=== PATIENT | male | born 1965 | race Caucasian/White ===

== ENCOUNTER 2017-03-11 09:19 | Emergency (ER) | payer MEDICAID ==
[~2017-03-11] VITALS: Ht 170.2 cm; Wt 76.3 kg
[~2017-03-11 09:19] MED LIST: DOXE25CA3 PO; PARO20TA24 PO
[2017-03-11 09:32] VITALS: BP 135/82
[2017-03-11] MEDS ORDERED: KETOROLAC TROMETHAMINE 60 MG/2 ML VIAL IM ONE (11:30)
== END 2017-03-11 12:18 | disposition home or self-care (01) ==
LOC: EMS 09:23
DX: S82.51XA Displaced fracture of medial malleolus of right tibia, initial encounter for closed fracture (principal); V19.9XXA Pedal cyclist (driver) (passenger) injured in unspecified traffic accident, initial encounter; Y93.55 Activity, bike riding; Y92.89 Other specified places as the place of occurrence of the external cause; Y99.8 Other external cause status
CPT/HCPCS: 29515; 73610; 96372; 99284; J1885

== ENCOUNTER 2018-09-02 10:52 | Emergency (ER) | payer MEDICAID ==
[~2018-09-02] VITALS: Ht 167.6 cm; Wt 68.2 kg
[2018-09-02 12:01] LABS: APPEARANCE,URINE CLOUDY (CLEAR); BILIRUBIN,URINE NEGATIVE (NEGATIVE); GLUCOSE, URINE (UA) NEGATIVE (NEGATIVE); KETONES,URINE NEGATIVE (NEGATIVE); LEUKOCYTE ESTERASE ,URINE LARGE (NEGATIVE); NITRATE,URINE POSITIVE (NEGATIVE); OCCULT BLOOD,URINE LARGE (NEGATIVE); PROTEIN,URINE SEE CONFIRM (NEGATIVE)
[2018-09-02 12:16] LABS: BACTERIA,URINE Many /HPF (None Seen); SULFOSALICYLIC ACID,URINE 3+ (Negative); WBC,URINE 51-100 /HPF (0-5)
[2018-09-02] MEDS ORDERED: CEPHALEXIN MONOHYDRATE 500 MG CAPSULE PO ONE (14:30)
[2018-09-02 15:00] VITALS: BP 118/72
== END 2018-09-02 15:10 | disposition home or self-care (01) ==
LOC: EMS 10:52
DX: N39.0 Urinary tract infection, site not specified (principal)
CPT/HCPCS: 87086

== ENCOUNTER 2020-01-13 21:49 | Emergency (ER) | payer MEDICAID ==
[~2020-01-13] VITALS: Ht 167.6 cm; Wt 68.2 kg
[2020-01-13 22:48] LABS: BASOPHILS % (AUTO) 0.9 % (0.0-2.0); EOSINOPHILS % (AUTO) 10.5 % (1.0-6.0); HEMOGLOBIN 13.8 g/dL (13.5-17.5); LYMPHOCYTES # (AUTO) 1.9 K/uL (1.0-4.8); LYMPHOCYTES % (AUTO) 29.4 % (22.0-44.0); MEAN CORPUSCULAR HEMOGLOBIN 29.8 pg (26.0-34.0); MEAN CORPUSCULAR VOLUME 90 fL (80-100); MONOCYTES # (AUTO) 0.5 K/uL (0.1-1.0); MONOCYTES % (AUTO) 7.4 % (2.0-9.0); NEUTROPHILS # (AUTO) 3.3 K/uL (1.8-7.7); NEUTROPHILS % (AUTO) 51.8 % (40.0-70.0); PLATELET COUNT (AUTO) 287 K/uL (150-450); RED BLOOD CELL COUNT(AUTO) 4.65 MIL/uL (4.50-5.90); RED CELL DISTRIBUTION WIDTH 13.6 % (11.5-14.5)
[2020-01-13 23:00] LABS: CALCIUM, TOTAL 9.3 mg/dL (8.8-10.5); CREATININE 1.26 mg/dL (0.60-1.30); POTASSIUM 3.3 mmol/L (3.5-5.1)
[2020-01-13 23:06] LABS: ALBUMIN 3.7 g/dL (3.4-5.0); BILIRUBIN,TOTAL 0.2 mg/dL (0.1-1.0); TOTAL PROTEIN, SERUM 6.9 g/dL (6.4-8.2)
[2020-01-14 00:10] VITALS: BP 139/82
== END 2020-01-14 01:49 | disposition home or self-care (01) ==
LOC: EMS 21:49
DX: R20.0 Anesthesia of skin (principal)
CPT/HCPCS: 36415; 80053; 84484; 85025; 93005; 99284; G0480

== ENCOUNTER 2020-06-22 09:11 | Emergency (ER) | payer MEDICAID ==
[~2020-06-22] VITALS: Ht 157.5 cm; Wt 68.2 kg
[2020-06-22] MEDS ORDERED: PERTUSS(ACELL),DIPH,TET VAC/PF 0.5 ML VIAL IM ONE (10:45)
[2020-06-22] MEDS ORDERED: DOXYCYCLINE HYCLATE 100 MG TABLET PO ONE (10:45)
[2020-06-22 12:00] VITALS: BP 124/74
== END 2020-06-22 12:32 | disposition home or self-care (01) ==
LOC: EMS 09:15
DX: M79.645 Pain in left finger(s) (principal); W57.XXXA Bitten or stung by nonvenomous insect and other nonvenomous arthropods, initial encounter; Y93.89 Activity, other specified; Y92.89 Other specified places as the place of occurrence of the external cause; Y99.8 Other external cause status
CPT/HCPCS: 90471; 90715; 99283

== ENCOUNTER 2021-07-13 16:28 | Emergency (ER) | payer MEDICAID ==
[~2021-07-13] VITALS: Ht 167.6 cm; Wt 65.9 kg
[2021-07-13] MEDS ORDERED: IBUPROFEN 800 MG TABLET PO ONE (17:00)
[2021-07-13] MEDS ORDERED: CEPHALEXIN MONOHYDRATE 500 MG CAPSULE PO ONE (17:00)
[2021-07-13 19:00] VITALS: BP 154/85
[2021-07-13] MEDS ORDERED: MUPI15CR12 TP (20:39)
[2021-07-13] MEDS ORDERED: DOXY-354 PO (20:39)
== END 2021-07-13 20:30 | disposition home or self-care (01) ==
LOC: EMS 16:34
DX: L03.031 Cellulitis of right toe (principal); F32.9 Major depressive disorder, single episode, unspecified; F41.9 Anxiety disorder, unspecified
CPT/HCPCS: 99283

== ENCOUNTER 2022-08-06 10:41 | Emergency (ER) | payer MEDICAID ==
[~2022-08-06] VITALS: Ht 165.1 cm; Wt 70.5 kg
[~2022-08-06 10:41] MED LIST changes: -DOXE25CA3 PO; +DOXY-354 PO; +MUPI15CR12 TP; -PARO20TA24 PO
[2022-08-06 12:14] LABS: BASOPHILS % (AUTO) 0.3 % (0.0-2.0); EOSINOPHILS % (AUTO) 1.6 % (1.0-6.0); HEMATOCRIT 44.2 % (41-53); HEMOGLOBIN 14.6 g/dL (13.5-17.5); LYMPHOCYTES # (AUTO) 1.1 K/uL (1.0-4.8); LYMPHOCYTES % (AUTO) 13.8 % (22.0-44.0); MEAN CORPUSCULAR HEMOGLOBIN 29.3 pg (26.0-34.0); MEAN CORPUSCULAR VOLUME 89 fL (80-100); MONOCYTES # (AUTO) 0.8 K/uL (0.1-1.0); MONOCYTES % (AUTO) 10.2 % (2.0-9.0); NEUTROPHILS % (AUTO) 74.1 % (40.0-70.0); PLATELET COUNT (AUTO) 296 K/uL (150-450); RED BLOOD CELL COUNT(AUTO) 4.97 MIL/uL (4.50-5.90); RED CELL DISTRIBUTION WIDTH 14.4 % (11.5-14.5)
[2022-08-06 12:16] LABS: ANION GAP 6 mmol/L (8-16); CALCIUM, TOTAL 9.2 mg/dL (8.8-10.5); CARBON DIOXIDE 29 mmol/L (22-29); CHLORIDE 103 mmol/L (98-107); CREATININE 0.91 mg/dL (0.60-1.30); GLOMERULAR FILTR. RATE CALC > 60 mL/min (>60); GLUCOSE,RANDOM 79 mg/dL (70-110); POTASSIUM 3.9 mmol/L (3.5-5.1); SODIUM SERUM 138 mmol/L (136-145); UREA NITROGEN, BLOOD 13 mg/dL (7-18)
[2022-08-06 12:32] VITALS: BP 131/78
[2022-08-06] MEDS ORDERED: CEPH-558 PO (12:52)
[2022-08-06] MEDS ORDERED: IBUP-1492 PO (12:52)
[2022-08-06] MEDS ORDERED: SULF-261 PO (12:54)
[2022-08-06] MEDS ORDERED: CEPHALEXIN MONOHYDRATE 500 MG CAPSULE PO ONE (13:00)
[2022-08-06] MEDS ORDERED: IBUPROFEN 600 MG TABLET PO ONE (13:00)
[2022-08-06] MEDS ORDERED: SULFAMETHOX/TRIMETH DS 800-160 MG/TABLET PO ONE (13:00)
== END 2022-08-06 13:13 | disposition home or self-care (01) ==
LOC: EMS 10:41
DX: L03.115 Cellulitis of right lower limb (principal)
CPT/HCPCS: 80048; 85025; 99284

== ENCOUNTER 2023-12-24 12:54 | Emergency (ER) | payer MEDICAID ==
[~2023-12-24] VITALS: Ht 165.1 cm; Wt 63.6 kg
[~2023-12-24 12:54] MED LIST changes: +CEPH-558 PO; +CLOT15CR29 TP; +IBUP-1492 PO; -MUPI15CR12 TP; +SULF-261 PO
[2023-12-24 13:02] VITALS: TEMP 98.6
[2023-12-24] MEDS: KETOROLAC TROMETHAMINE 30 MG/ML VIAL IM ONE (14:04)
[2023-12-24] MEDS: LIDOCAINE 5% TRANSDERMAL PATCH TD ONE (14:04)
[2023-12-24] MEDS ORDERED: BACL10TA PO (14:40)
[2023-12-24] MEDS ORDERED: IBUP-1492 PO (14:40)
[2023-12-24 15:04] VITALS: BP 156/91; PULSE 76; RESP 14
== END 2023-12-24 15:07 | disposition home or self-care (01) ==
LOC: EMS 12:54
DX: M54.31 Sciatica, right side (principal); Z98.890 Other specified postprocedural states
CPT/HCPCS: 99283; 96372; J1885

== ENCOUNTER 2024-01-08 21:33 | Emergency (ER) | payer MEDICAID ==
[~2024-01-08] VITALS: Ht 165.1 cm; Wt 65.9 kg
[~2024-01-08 21:33] MED LIST changes: +BACL10TA PO
[2024-01-08 22:01] VITALS: BP 162/90; PULSE 77; RESP 16; TEMP 97.9; O2SAT 100
[2024-01-08] MEDS: KETOROLAC TROMETHAMINE 30 MG/ML VIAL IM ONE (22:32)
[2024-01-08] MEDS: LIDOCAINE 5% TRANSDERMAL PATCH TD ONE (22:32)
== END 2024-01-08 22:40 | disposition home or self-care (01) ==
LOC: EMS 21:33
DX: M54.31 Sciatica, right side (principal); Z98.890 Other specified postprocedural states
CPT/HCPCS: 99283; 96372; J1885